=== PATIENT | female | born 1995 ===

== ENCOUNTER 2019-02-20 08:22 | Emergency (ER) | payer BC ==
[2019-02-20] MEDS ORDERED: Sodium Chloride 0.9% 1,000 ML IV ONE (09:30)
[2019-02-20] MEDS ORDERED: Sodium Chloride 0.9% 1,000 ML ONE (09:44)
[2019-02-20 09:53] LABS: BASO % 0.5 % (0.0-2.0); EOS % 0.4 % (0.0-4.0); HEMOGLOBIN 12.1 g/dL (11.0-16.0); LYMPH # 1.6 K/uL (1.0-4.3); LYMPH % 32.5 % (20.0-40.0); MEAN CELL VOLUME 93.3 fL (81.0-99.0); MEAN CORPUSCULAR HEMOGLOBIN 32.8 pg (27.0-31.0); MEAN CORPUSCULAR HGB CONC 35.1 g/dL (33.0-37.0); MONO # 0.3 K/uL (0.0-0.8); MONO % 5.8 % (0.0-10.0); NEUT # 2.9 K/uL (1.8-7.0); NEUT % 60.8 % (50.0-75.0); NRBC % 0.1 % (0.0-2.0); RBC 3.69 Mil/uL (3.80-5.20); RED CELL DISTRIBUTION WIDTH 12.5 % (11.5-14.5); WHITE BLOOD COUNT 4.8 K/uL (4.8-10.8)
[2019-02-20 10:10] LABS: ALB/GLOB RATIO 1.3 (1.0-2.1); ALT/SGPT 48 U/L (9-52); AST/SGOT 29 U/L (14-36); BLOOD UREA NITROGEN 7 mg/dL (7-17); CALCIUM 9.1 mg/dl (8.6-10.4); GFR NON-AFRICAN AMERICAN > 60
--- NOTE | 2019-02-20 10:38 | C.PDOC ---
History Of Present Illness 23 y/o female,, 9 weeks , presents to the ER complaining of headache, dizziness, vomiting, and lower abdominal pain which has been present for the past 1 week. Patient states that she has history of endometriosis. Patient reports that she was admitted in the hospital during her previous .Denies syncope, fever, CP, SOB, urinary symptoms, vaginal bleeding, and vaginal discharge. Time Seen by Provider: 02/20/19 08:45 Chief Complaint (Nursing): Abdominal Pain History Per: Patient History/Exam Limitations: no limitations Onset/Duration Of Symptoms: Days Current Symptoms Are (Timing): Still Present Severity: Moderate Past Medical History Reviewed: Historical Data, Nursing Documentation, Vital Signs Vital Signs: Last Vital Signs Temp 98.4 F 02/20/19 08:38 Pulse 75 02/20/19 08:38 Resp 18 02/20/19 08:38 BP 116/78 02/20/19 08:38 Pulse Ox 98 02/20/19 08:38 Primary Care Provider: FAMILY PROVIDER,NO - Medical History PMH: No Chronic Diseases Surgical History: No Surg Hx Family History: States: No Known Family Hx - Social History Hx Alcohol Use: No Hx Substance Use: No - Immunization History Hx Tetanus Toxoid Vaccination: No Hx Influenza Vaccination: No Hx Pneumococcal Vaccination: No Review Of Systems Except As Marked, All Systems Reviewed And Found Negative. Constitutional: Positive for: Chills. Negative for: Fever Gastrointestinal: Positive for: Vomiting, Abdominal Pain. Negative for: Diarrhea Genitourinary: Negative for: Vaginal Discharge, Vaginal Bleeding Neurological: Positive for: Headache, Dizziness Physical Exam - Physical Exam Appears: Non-toxic, No Acute Distress Skin: Normal Color, Warm, Dry Head: Atraumatic, Normacephalic Eye(s): bilateral: Normal Inspection, PERRL, EOMI Nose: Normal Oral Mucosa: Moist Neck: Normal ROM, Supple Chest: Symmetrical Cardiovascular: Rhythm Regular Respiratory: Normal Breath Sounds, No Rales, No Rhonchi, No Wheezing Gastrointestinal/Abdominal: Bowel Sounds, Soft, Tenderness (RLQ and suprapubic tenderness), No Guarding, No Rebound Back: No CVA Tenderness Neurological/Psych: Oriented x3, Normal Speech, Normal Cognition, Normal Cranial Nerves, Normal Motor, Normal Sensation ED Course And Treatment - Laboratory Results Result Diagrams: 02/20/19 09:50 02/20/19 09:50 Lab Results: Total Bilirubin 0.5 mg/dL (0.2-1.3) 02/20/19 09:50 AST 29 U/L (14-36) 02/20/19 09:50 ALT 48 U/L (9-52) 02/20/19 09:50 Alkaline Phosphatase 66 U/L (38-126) 02/20/19 09:50 Total Protein 7.1 g/dL (6.3-8.3) 02/20/19 09:50 Albumin 4.0 g/dL (3.5-5.0) 02/20/19 09:50 Globulin 3.1 gm/dL (2.2-3.9) 02/20/19 09:50 Albumin/Globulin Ratio 1.3 (1.0-2.1) 02/20/19 09:50 O2 Sat by Pulse Oximetry: 98 (RA) Pulse Ox Interpretation: Normal - CT Scan/US US Obstetrics Other Rad Studies (CT/US): Read By Radiologist, Radiology Report Reviewed CT/US Interpretation: Impression: Live single intrauterine with estimated gestational age 6 weeks 5 days by gestational sac calculation and 6 weeks 0 days by crown-rump length calculation. heart rate 119 bpm. Advise an anomaly screen at 16-18 weeks gestational age. 2.5 x 2.1 x 2.1 cm left ovarian complex cyst. Medical Decision Making Medical Decision Making: Plan: --IV Fluids --Labs --Urinalysis --Urine Culture --US-1st Trimester Results of w/u d/w patient. UA w/bacteria, will treat for UTI. Patient agree able w/POC and states she has an OB w/whom she can f/u. Disposition Counseled Patient/Family Regarding: Studies Performed, Diagnosis, Need For Followup - Disposition [facility] Disposition: HOME/ ROUTINE Disposition Time: 14:15 Condition: STABLE Additional Instructions: RHONDA PAL, thank you for letting us take care of you today. Your provider was Shila Lee MD and you were treated for /ABD PAIN. The emergency medical care you received today was directed at your acute symptoms. If you were prescribed any medication, please fill it and take as directed. It may take se veral days for your symptoms to resolve. Return to the Emergency Department if your symptoms worsen, do not improve, or if you have any other problems. Please contact your doctor or call one of the physicians/clinics you have been referred to that are listed on the Patient Visit Information form that is included in your discharge packet. Bring any paperwork you were given at discharge with you along with any medications you are taking to your follow up visit. Our treatment cannot replace ongoing medical care by a primary care provider outside of the emergency department. Thank you for allowing the [facility] team to be part of your care today. Prescriptions: Nitrofurantoin Monohyd/M-Cryst [Macrobid 100 mg Capsule] 100 mg PO BID #13 capsule Instructions: Asymptomatic Bacteriuria, Stomach Pain in Early Forms: [facility] (Romanian), General Discharge Instructions - POA Present On Arrival: None - Clinical Impression Clinical Impression: Abdominal pain in , Asymptomatic bacteriuria during - Scribe Statement The provider has reviewed the documentation as recorded by the Isabel Mendoza Provider Attestation: All medical record entries made by the Toniibe were at my direction and personally dictated by me. I have reviewed the chart and agree that the record accurately reflects my personal performance of the history, physical exam, medical decision making, and the department course for this patient. I have also personally directed, reviewed, and agree with the discharge instructions and disposition.
[2019-02-20 11:21] LABS: SQUAMOUS EPITHIAL 8 /hpf (0-5); URINE BACTERIA OCC (<OCC); URINE BILIRUBIN NEGATIVE (NEGATIVE); URINE BLOOD 2+ (NEGATIVE); URINE CLARITY Hazy (Clear); URINE COLOR Yellow (YELLOW); URINE GLUCOSE (UA) NORMAL (Normal); URINE LEUKOCYTE ESTERASE 3+ Leu/uL (Negative); URINE PROTEIN NEGATIVE (NEGATIVE); URINE UROBILINOGEN NORMAL mg/dL (0.2-1.0)
--- NOTE | 2019-02-20 11:25 | US ---
Date of service: 02/20/2019 Indication: abd pain Comparison: None available Technique: Real-time transabdominal pelvic ultrasound was performed. In addition a transvaginal pelvic ultrasound was necessary to better depict pelvic anatomy. Findings: The uterus measures approximately 11.4 x 6.3 x 8.4 cm. Anteverted. Cervix length measures approximately 3.3 cm. There is a single intrauterine fetus present. 2 mm yolk sac. The gestational sac measures 2.2 cm and is compatible with a gestational age of 6 weeks 5 days. The crown-rump length measures 0.4 cm and is compatible with a gestational age of 6 weeks 0 days. There is heart motion which measured 119 BPM. The right ovary measures 3.6 x 2.1 x 3.2 cm. The left ovary measures 3.3 x 2.5 x 4.1 cm and contains 2.5 x 2.1 x 2.1 cm complex cyst. Blood flow was demonstrated to both ovaries. Impression: Live single intrauterine with estimated gestational age 6 weeks 5 days by gestational sac calculation and 6 weeks 0 days by crown-rump length calculation. heart rate 119 bpm. Advise an anomaly screen at 16-18 weeks gestational age 2.5 x 2.1 x 2.1 cm left ovarian complex cyst.
[2019-02-20 14:22] VITALS: O2SAT 98
[2019-02-20 14:31] VITALS: BP 96/58; PULSE 67; RESP 18; TEMP 98.1
== END 2019-02-20 14:54 | disposition home or self-care (01) ==
LOC: C.ER 08:22
DX: O26.891 Other specified pregnancy related conditions, first trimester (principal); Z3A.01 Less than 8 weeks gestation of pregnancy; R82.71 Bacteriuria
CPT/HCPCS: 76805; 76817; 80053; 81001; 84702; 85025; 87086; 96360; 99285; J7030